=== PATIENT | female | born 1985 | race Caucasian/White ===

== ENCOUNTER 2021-12-12 10:01 | Outpatient (CLI) | payer OTHER, SELFPAY ==
[2021-12-13 19:08] LABS: SARS-CoV-2 RNA PCR Positive
== END 2021-12-12 10:02 | disposition home or self-care (01) ==
LOC: CHSLAB 10:06
PROVIDERS: PCP Family Medicine; Visit Provider Family Medicine
DX: U07.1 COVID-19 (principal); R68.83 Chills (without fever)
CPT/HCPCS: C9803; U0003; U0005